=== PATIENT | female | born 2000 | race Caucasian/White ===

== ENCOUNTER 2022-01-01 19:39 | Emergency (ER) | payer OTHER, SELFPAY ==
[2022-01-01 19:40] VITALS: BP 129/71; PULSE 95; RESP 16; TEMP 36.6; O2SAT 98; BMI 19.0
--- NOTE | 2022-01-01 20:17 | ED.VIS.LOWEX ---
HPI History of Present Illness Chief Complaint: Laceration Narrative Narrative: States that she was riding a horse and came around a barrel and caught the left knee on this. She has a laceration to the area overlying the patella. She was able to get bleeding controlled. She is able to ambulate. She does not believe she broke anything. She states somebody cleaned it up on site and put a butterfly dressing on it. She had to clean up the horses and he put them away and arrives for evaluation of her wound. Patient denies any significant medical history. Last tetanus imitation unknown. PFSH PFSH Home Medications fluoxetine 10 mg tablet 10 mg PO PRN PRN Anxiety 01/01/22 [History Last Taken Unknown] Allergy/AdvReac Type Severity Reaction Status Date / Time No Known Allergies Allergy Verified 01/01/22 19:42 Social History Smoking Status: Never smoker ROS ROS ED Constitutional Constitutional ED: Denies chills or fever(s) Eyes Eyes: Denies change in vision ENT ENT ED: Denies rhinorrhea or sore throat Cardiovascular Cardiovascular: Denies chest pain or palpitations Respiratory/Chest Respiratory/Chest: Denies cough or dyspnea Gastrointestinal Gastrointestinal: Denies abdominal pain or constipation Genitourinary Genitourinary ED: Denies dysuria or hematuria Musculoskeletal Musculoskeletal: Denies arthralgias or back pain Integumentary Reports other Details: Laceration left knee Neurologic Neurologic: Denies headache(s) or paresthesias Psychiatric Psychiatric: Denies anxiety or depression EXAM Physical Exam Const Vital Signs: 01/01/22 19:40 Temperature 97.8 F Temperature Source Temporal Pulse Rate 95 Respiratory Rate 16 Blood Pressure 129/71 H Blood Pressure Mean 90 Pulse Ox 98 Oxygen Delivery Method Room Air Positive well nourished HEENT Reports moist mucous membranes normocephalic and atraumatic Chest Wall inspection of chest normal Resp normal respiratory effort Cardio regular rate and regular rhythm Extremity Extremity Narrative: Left knee with 3 cm laceration overlying the patella and horizontal lie. Wound is well approximated with 2 butterfly adhesive dressing. No bony tenderness. Full range of motion of the left knee. Patient ambulatory on scene in the ER Neuro oriented x3 and CN's II-XII intact bilaterally Sensorium / Orientation: alert Motor Exam: strength 5/5 throughout Psych mental status grossly normal Skin Skin Narrative: As described above MDM MDM MDM Narrative Medical decision making narrative: 40-year-old female presenting with left knee laceration. No bony tenderness. I do not believe she is an x-ray. She is ambulatory. Tetanus was updated today. Patient's wound was cleaned thoroughly at the scene but was reclean today. Irrigated with normal saline as well. 3 cc of lidocaine without epinephrine was used to anesthetize the wound margins. 5 simple interrupted 3?0 nonabsorbable sutures were placed with good approximation of the wound margins. Is tolerated she is well. She is counseled on wound care. She is counseled not to soak the knee. She is to keep it dressed. She is to monitor for signs of infection. I do believe she is on antibiotics. Return precautions were discussed. Impression: 1. 3 cm left knee laceration Lab Data Attestation: I reviewed the patient's lab results. Discharge Plan Triage Chief Complaint: Laceration ED Provider: Jabari Sawyer Dx/Rx/DC Orders Instructions: ED Laceration Extremity Prescriptions: No Action fluoxetine 10 mg tablet 10 mg PO PRN PRN (Reason: Anxiety) Label Comments: take 1 and 1/2 tablets by mouth once daily Primary Care Provider: Kolby Raygoza Referrals: Kolby Raygoza DO [Primary Care Provider] - Disposition Disposition: Home, Self Care
[2022-01-01] MEDS: Diphth,Pertuss(Acell),Tet Vac 0.5 ML Vial IM (20:20)
[2022-01-01 22:47] VITALS: PULSE 85; RESP 18; O2SAT 100
== END 2022-01-01 22:48 | disposition home or self-care (01) ==
PROVIDERS: Emergency Provider Student in an Organized Health Care Education/Training Program; PCP Student in an Organized Health Care Education/Training Program; Visit Provider Student in an Organized Health Care Education/Training Program
DX: S81.012A Laceration without foreign body, left knee, initial encounter (principal); W26.8XXA Contact with other sharp object(s), not elsewhere classified, initial encounter; Y93.52 Activity, horseback riding; Z23 Encounter for immunization
CPT/HCPCS: 12002; 90471; 90715; 99284